=== PATIENT | female | born 1950 | race Caucasian/White ===

== ENCOUNTER 2020-04-16 14:35 | Outpatient (CLI) | payer OTHER, SELFPAY ==
--- NOTE | ~2020-04-16 | MM_ITS ---
EXAMINATION: MM screening jay jay BI w manuel HISTORY: Screening mammogram TECHNIQUE: Craniocaudal and mediolateral oblique 3-D tomosynthesis images were obtained and synthetic 2-D images were generated. CAD analysis was submitted and interpreted. COMPARISON: 03/09/2019 bilateral digital screening mammogram BREAST PARENCHYMAL COMPOSITION: There are scattered areas of fibroglandular density. FINDINGS: Bilateral scattered benign calcifications. Stable mild fibroglandular asymmetry. There is n o evidence of suspicious mass, calcification, or architectural distortion to suggest malignancy in ei ther breast. There has been no suspicious interval change. IMPRESSION: 1. No mammographic evidence of malignancy. 2. Recommend routine screening mammography in one year. BI-RADS Category 2: Benign finding(s). Reviewed, dictated and finalized at location A.
== END 2020-04-16 14:36 | disposition home or self-care (01) ==
PROVIDERS: PCP Internal Medicine; Visit Provider Internal Medicine
DX: Z12.31 Encounter for screening mammogram for malignant neoplasm of breast (principal)
CPT/HCPCS: 77063; 77067

== ENCOUNTER 2020-04-16 15:32 | Outpatient (CLI) | payer OTHER, SELFPAY ==
--- NOTE | ~2020-04-16 | CT_ITS ---
EXAMINATION: CT chest w con DATE: 04/16/2020 17:05 INDICATION: Mediastinal mass TECHNIQUE: Transaxial computed tomographic images of the chest were obtained after the administration of 75 cc of Omnipaque 350 intravenous contrast. The dose-length product (DLP) was 211.17 mGy-cm. Ite rative reconstruction was used. COMPARISON: 10/02/2019, 03/09/2019 FINDINGS: There is severe emphysema. A stable 2.1 x 1.6 cm mass is present in the anterior mediastinu m. The lungs are free of acute opacities. There is no pleural effusion or pneumothorax. No pathologic ally enlarged thoracic lymph nodes are identified. The heart size is normal. Calcified coronary arter y atherosclerosis is noted. There is a moderate-sized sliding hiatal hernia. Calcified mediastinal ly mph nodes are consistent with old granulomatous disease. There is mild thoracic spondylosis. The live r is diffusely low in attenuation when compared with the spleen, consistent with hepatic steatosis. IMPRESSION: 1. 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 2. Severe emphysema. Reviewed, dictated and finalized at location A.
[2020-04-16 16:58] LABS: Estimated Glomerular Filt Rate > 60
== END 2020-04-16 15:33 | disposition home or self-care (01) ==
PROVIDERS: PCP Internal Medicine
DX: J98.59 Other diseases of mediastinum, not elsewhere classified (principal); F17.200 Nicotine dependence, unspecified, uncomplicated; J43.9 Emphysema, unspecified
CPT/HCPCS: 36415; 71260; 77063; 77067; Q9967

== ENCOUNTER 2020-10-08 14:04 | Outpatient (CLI) | payer OTHER, SELFPAY ==
--- NOTE | ~2020-10-08 | US_ITS ---
EXAMINATION: US soft tissue head and neck DATE: 10/08/2020 14:49 INDICATION: Right neck lump. TECHNIQUE: Multiple grayscale and Doppler ultrasound images of the right neck and face were obtained. COMPARISON: None FINDINGS: The right parotid gland is in the patient's area of concern. No abnormal mass. A normal sub cutaneous lymph node is identified. IMPRESSION: 1. Unremarkable right parotid gland. Note that CT is more sensitive than ultrasound for parotiditis. Reviewed, dictated and finalized at location B. IT CORRESPONDENCE CLERK IMPRESSION: 1. Unremarkable right parotid gland. Note that CT is more sensitive than ultras ound for parotiditis.
== END 2020-10-08 14:05 | disposition home or self-care (01) ==
PROVIDERS: PCP Internal Medicine; Visit Provider Internal Medicine
DX: R22.1 Localized swelling, mass and lump, neck (principal)
CPT/HCPCS: 76536

== ENCOUNTER 2020-10-09 14:48 | Outpatient (CLI) | payer OTHER, SELFPAY ==
--- NOTE | ~2020-10-09 | CT_ITS ---
EXAMINATION: CT soft tissue neck w con DATE: 10/09/2020 15:40 INDICATION: Sialoadenitis, unspecified. TECHNIQUE: Computed tomography (CT) of the neck was performed with 75 mL Omnipaque-350 intravenous co ntrast. Automated exposure control and iterative reconstruction technique were employed. The dose-ten gth product was 573.31 mGy-cm. COMPARISON: PET CT 05/01/19, ultrasound 10/08/2020 FINDINGS: The visualized portions of the lung apices demonstrate severe emphysema. There is mild medi astinal lymphadenopathy, likely reactive. There is plaque in the proximal internal carotid arteries w ith less than 50% stenosis relative to normal distal artery lumen diameters. There is a punctate sial olith in left parotid gland. The right parotid gland is unremarkable. There is mild mucosal thickenin g in the ethmoid sinuses. There is a right otomastoid effusion. IMPRESSION: 1. Punctate sialolith in left parotid gland. No parotiditis. 2. Right otomastoid effusion. Reviewed, dictated and finalized at location B. ER
[2020-10-09 15:28] LABS: Estimated Glomerular Filt Rate > 60
== END 2020-10-09 14:49 | disposition home or self-care (01) ==
PROVIDERS: PCP Internal Medicine; Visit Provider Internal Medicine
DX: K11.20 Sialoadenitis, unspecified (principal); H74.8X3 Other specified disorders of middle ear and mastoid, bilateral
CPT/HCPCS: 70491; Q9967

== ENCOUNTER 2020-10-13 12:48 | Outpatient (CLI) | payer OTHER, SELFPAY ==
--- NOTE | ~2020-10-13 | CT_ITS ---
EXAMINATION: CTA chest TECHNIQUE: Computed tomography (CT) of the chest was performed with 100 cc Omnipaque 350 intravenous contrast. Automated exposure control and iterative reconstruction technique were employed. Exam dose: 675.42 mGy-cm total exam DLP. COMPARISON: 04/16/2020 CT chest FINDINGS: Stable anterior mediastinal mass measuring approximately 1.5 cm maximal anteroposterior and 2 cm, without evidence of interval enlargement since 04/16/2020. No other hilar or mediastinal mass lesion or lymphadenopathy. Normal heart size. Aortic and great vessel calcification; no thoracic aortic aneurysm or dissection. No pericardial or pleural effusion. Severe emphysema is again noted. No pulmonary infiltrate or consolidation or pulmonary mass lesion is evident. Mild to moderate sliding hiatal hernia. Status post cholecystectomy. Hepatic steatosis. There is diffuse osteopenia. There is mild degenerative spurring of the thoracic spine. No suspicious osteolytic or osteoblastic lesions are noted. IMPRESSION: Stable anterior mediastinal mass, not significant change since 04/16/2020 Severe osteopenia Hiatal hernia Status post cholecystectomy Hepatic steatosis. Reviewed, dictated and finalized at Location A. Reviewed, dictated and finalized at location B. AGE CLERK IMPRESSION: Stable anterior mediastinal mass, not significant change since 03/29 Severe osteopenia Hiatal hernia Status post cholecystectomy Hepatic steatosis.
== END 2020-10-13 12:49 | disposition home or self-care (01) ==
PROVIDERS: PCP Internal Medicine
DX: J98.59 Other diseases of mediastinum, not elsewhere classified (principal); F17.200 Nicotine dependence, unspecified, uncomplicated; K44.9 Diaphragmatic hernia without obstruction or gangrene; Z90.49 Acquired absence of other specified parts of digestive tract; K76.0 Fatty (change of) liver, not elsewhere classified
CPT/HCPCS: 71275; Q9967

== ENCOUNTER → 2021-10-13 14:57 | Outpatient (CLI) | payer MEDICARE, SELFPAY ==
--- NOTE | ~2021-10-13 | XR_ITS ---
EXAMINATION: XR chest 2V EXAM DATE: 10/13/2021 15:14 INDICATION: J44.9 - Chronic obstructive pulmonary disease, unspecified. Cough for 2.5 weeks. TECHNIQUE: Frontal and lateral projections of the chest obtained and reviewed. Comparison is made to prior examination from 02/14/2018. FINDINGS: The lungs are hyperinflated which can be seen with chronic obstructive pulmonary disease (a clinical diagnosis of functional impairment), but is not diagnostic of it. There is aortic arteriosc lerosis. Narrow cardiac silhouette from hyperinflated lungs. No confluent consolidation, pneumothorax or pleural effusion suspected. There are cholecystectomy clips. There are no osseous abnormalities i dentified. IMPRESSION: Moderate hyperinflation. Reviewed, dictated and finalized at location B. VITY THERAPY SPECIALIST IMPRESSION: Moderate hyperinflation.
== END ==
PROVIDERS: PCP Internal Medicine; Visit Provider Internal Medicine
DX: J44.9 Chronic obstructive pulmonary disease, unspecified (principal); R91.8 Other nonspecific abnormal finding of lung field
CPT/HCPCS: 71046

== ENCOUNTER 2022-01-05 08:53 | Outpatient (CLI) | payer MEDICARE, SELFPAY ==
--- NOTE | ~2022-01-05 | CT_ITS ---
EXAMINATION: CTA chest EXAM DATE: 01/05/2022 09:21 INDICATION: Anterior mediastinal mass. TECHNIQUE: Spiral CT of the chest following intravenous injection of 100 mL Omnipaque 350. Axial, co mikael and sagittal images of the chest were reviewed. Coronal maximum intensity pixel images of ches t reviewed. Maximum intensity projection 3-D reconstructions of the aorta were created by the technkika franco on dedicated workstation. The dose-length product (DLP) for this examination was 405.30 mGy-cm . The exposure was tailored according to patient size (auto mA exposure control), and iterative afsaneh nstruction (ASIR) was used as additional dose reduction technique. Comparison is made to prior examin ation from 04/10/2019. FINDINGS: Anterior mediastinal mass measures 2.1 x 1.1 cm, appears unchanged compared to CT scan from 03/2019, which does favor benign histology. The lungs are clear. Thoracic aorta is normal in caliber and there is no dissection. No central pulmonary emboli. Moderate to severe emphysema. There are no p leural or pericardial effusions. Tracheobronchial tree is patent. There is no mediastinal, hilar or axillary lymphadenopathy. There is no pneumothorax. Heart normal in size. There is lipomatous hypertrophy of the interatrial septum. There is mild to moderate coronary arterial calcification, art erial sclerosis. There is small to sliding gastroesophageal hiatal hernia. There are cholecystectomy clips. There is thoracic spondylosis without osteoblastic or osteolytic lesions identified. IMPRESSION: 1. Stable anterior mediastinal mass which would favor benign histology such as thymoma. 2. Small to moderate hiatal hernia. 3. Moderate to severe emphysema. Reviewed, dictated and finalized at location B. ING PRESS OPERATOR
[2022-01-05 09:15] LABS: Estimated Glomerular Filt Rate > 60
== END 2022-01-05 08:54 | disposition home or self-care (01) ==
LOC: ANHIMG 08:57
PROVIDERS: PCP Internal Medicine; Visit Provider Thoracic Surgery (Cardiothoracic Vascular Surgery)
DX: J98.59 Other diseases of mediastinum, not elsewhere classified (principal); K44.9 Diaphragmatic hernia without obstruction or gangrene; J43.9 Emphysema, unspecified
CPT/HCPCS: 71275; Q9967

== ENCOUNTER 2023-02-13 12:48 | Outpatient (CLI) | payer MEDICARE, SELFPAY ==
--- NOTE | ~2023-02-13 | CT_ITS ---
Clinical Indication: Mediastinal mass CT Scan of the Chest with Contrast: Technique: Contiguous sections were acquired throughout the chest after intravenous administration of 75 cc of Omnipaque 350. Dose reduction technique was used on this scan by utilizing automated exposu re control and iterative reconstruction technique. The dose-length product (DLP) was 278.27 mGy-cm. COMPARISON: 01/05/2022 and 10/13/2020 Findings: Stable anterior mediastinal mass noted (sagittal image 85, axial images 65-72). There is no evidence of any other significant mediastinal, hilar or axillary lymphadenopathy. There is no filling defect i n the pulmonary arterial tree to suggest pulmonary embolus. There is no evidence of aortic dissection or aneurysm. There are atherosclerotic calcifications of the aorta. Coronary artery calcifications a re present. Small hiatal hernia noted. There is no evidence of pleural or pericardial effusion. The lungs are clear. No pulmonary nodules or infiltrates are noted. Moderate to severe emphysema pres ent. Images through the upper abdomen reveal no abnormalities. Impression: Stable small anterior mediastinal mass. Stability over this time interval is most consistent with a b enign lesion. Moderate to severe emphysema. Small hiatal hernia. Reviewed, dictated and finalized at location . Impression: Stable small anterior mediastinal mass. Stability over this time interval is mo st consistent with a benign lesion. Moderate to severe emphysema. Small hiatal hernia.
[2023-02-13 13:39] LABS: Estimated Glomerular Filt Rate > 60
== END 2023-02-13 12:49 | disposition home or self-care (01) ==
PROVIDERS: PCP Internal Medicine; Visit Provider Thoracic Surgery (Cardiothoracic Vascular Surgery)
DX: J98.59 Other diseases of mediastinum, not elsewhere classified (principal); K44.9 Diaphragmatic hernia without obstruction or gangrene; J43.9 Emphysema, unspecified
CPT/HCPCS: 71260; Q9967

== ENCOUNTER 2025-05-15 13:03 | Outpatient (CLI) | payer MEDICARE, SELFPAY ==
--- NOTE | ~2025-05-15 | US_ITS ---
EXAM: RENAL ULTRASOUND HISTORY: R80.9 - Proteinuria, unspecified COMPARISON: None FINDINGS: RIGHT KIDNEY: 11.7 x 5.6 x 4.6 cm. The parenchyma of the right kidney is increased in echogenicity. No hydronephrosis or renal calculi. LEFT KIDNEY: 11.1 x 5.6 x 5.2 cm No hydronephrosis or renal calculi. The parenchyma of the left kidney is increased in echogenicity. BLADDER: The bladder is only minimally distended. Bilateral ureteral jets are identified. IMPRESSION: No hydronephrosis or renal calculi. Findings suggesting medical renal disease. Reviewed, dictated and finalized at location A.
--- NOTE | ~2025-05-15 | CT_ITS ---
CT Scan of the Chest without Contrast: Clinical Indication: Lung cancer screening, nicotine dependence Technique: Contiguous sections were acquired throughout the chest without intravenous contrast. Dose reduction technique was used on this scan by utilizing automated exposure control and iterative recon struction technique. The dose-length product (DLP) was 72.59 mGy-cm. COMPARISON: 02/13/2023 Findings: Stable small anterior mediastinal mass. There are extensive atherosclerotic calcifications of aorta a nd coronary arteries. There is no evidence of pleural or pericardial effusion. Severe emphysema present. No pulmonary nodule identified. Images through the upper abdomen reveal no abnormalities. Impression: Lung RADS 1-S: Negative. [address] advised. Severe emphysema. Stable small anterior mediastinal mass, with circumscribed, homogeneous appearance. Reviewed, dictated and finalized at [facility]. Impression: Lung RADS 1-S: Negative. [address] advised. Severe emphysema. Stable small anterior mediastinal mass, with circumscribed, homogeneous appeara nce.
--- OUTSIDE RECORDS SUMMARY | 2025-05-15 14:36 | XMS_ITS | CONTINUITY OF CARE DOCUMENT ---
Author Name flynn pruett Address Unknown Organization [facility] Address [address] [place] [address] Phone [phone] Care Team Providers Care Subassembly Supervisor Name Role Phone Mahad Mccallum MD Unavailable [phone] Reji Sethi MD Unavailable JEREMIAH BARLOW MD Unavailable [phone] PROBLEMS Condition Status Date Provider Notes PVD - angioplasty left SFA 05/19 active Ayla Stearns Diabetes mellitus, type 2 active Mahad Buenrostro i, MD Hypertension active Mahad Mccallum MD Hypothyroidism active Mahad Mccallum MD Hypercholesterolemia active Mahad Mccallum MD Tobacco abuse active Mahad Mccallum MD Leg pain, left active Spencer Martines Carotid artery stenosis, <50% ICA b/l active 8 Mahad Mccallum MD Venous insufficiency, bilateral active Mahad Mccallum MD 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 Mahad Mccallum MD Chest mass active Mahad Mccallum MD ENCOUNTERS Date Type Provider Location Encounter Diag nosis - In-person encounter Office Visit Mahad Mccallum MD [facility] - In-person encounter Office Visit Mahad Mccallum MD [facility] - In-person encounter Office Visit Mahad Mccallum MD [facility] - In-person encounter Office Visit Mahad Mccallum MD [facility] - In-person encounter Office Visit Mahad Mccallum MD [facility] - In-person encounter Office Visit Mahad Mccallum MD [facility] PVD - angioplasty left SFA 05/19 - In-person encounter Office Visit Mahad Mccallum MD [facility] - In-person encounter Office Visit Mahad Mccallum MD [facility] - In-person encounter Office Visit Mahad Mccallum MD [facility] PVD - angioplasty left SFA 05/19Leg pain, leftChest mass - In-person encounter Office Visit Mahad Mccallum MD [facility] 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 09/2017 - In-person encounter Office Visit Mahad Mccallum MD [facility] Carotid artery stenosis, <50% ICA b/lVenous insufficiency, bilateral - In-person encounter Office Visit Mahad Mccallum MD [facility] PVD - angioplasty left SFA 05/19Diabetes mellitus, type 2HypertensionHypothy roidismHypercholeste rolemiaTobacco abuseLeg pain, leftCarotid artery stenosis, <50% ICA b/l VITAL SIGNS Date Observation Value Provider Body Mass Index (Ratio) 24.87 kg/m2 Tana Rivers blood pressure, cuff size regular Ja rr blood pressure, diastolic 74 mm[Hg] Julio César rret blood pressure, systolic 155 mm[Hg] Chuck ret pulse rate 77 /min Grupo y respiratory rate E&M 14 /min Grupo oxygen saturation, oximetry 98 % Grupo weight E&M 136 [lb_av] Grupo [place] height E&M 62 [in_i] Grupo y Body Mass Index (Ratio) 25.60 kg/m2 Mellisa Dsouza blood pressure, cuff size regular Ja rret blood pressure, diastolic 80 mm[Hg] Ja rret blood pressure, systolic 170 mm[Hg] Jar ret pulse rate 74 /min Grupo respiratory rate E&M 12 /min Grupo oxygen saturation, oximetry 96 % Grupo weight E&M 140 [lb_av] Grupo y height E&M 62 [in_i] Grupo y Body Mass Index (Ratio) 25.79 kg/m2 Mahad Mccallum MD weight E&M 141 [lb_av] Grupo height E&M 62 [in_i] Grupo y blood pressure, cuff size regular Ja rret blood pressure, diastolic 76 mm[Hg] Ja rret blood pressure, systolic 149 mm[Hg] Jar ret oxygen saturation, oximetry 97 % respiratory rate E&M 12 /min pulse rate 86 /min Grupo Body Mass Index (Ratio) 26.15 kg/m2 Rasheed wade Ahmedzai blood pressure, diastolic 90 mm[Hg] Li nkLogic blood pressure, systolic 165 mm[Hg] Chantel kLogic blood pressure, diastolic 90 mm[Hg] Mi fabio [place] blood pressure, systolic 165 mm[Hg] Jewel helcassius [place] oxygen saturation, oximetry 95 % Rosanna [place] pulse rate 78 /min Rosanna April gates respiratory rate E&M 16 /min Tiesha Palacios blood pressure, cuff size regular Elida mccarthy Philip weight E&M 143 [lb_av] Rosanna gates height E&M 62 [in_i] Rosanna gates Body Mass Index (Ratio) 27.10 kg/m2 Antonio da Ventimiglia MANAGER ANALYTICAL blood pressure, diastolic 71 mm[Hg] lorenzo York blood pressure, systolic 143 mm[Hg] She sonali York blood pressure, cuff size regular Karla York pulse rate 85 /min Khushboo York oxygen saturation, oximetry 95 % Khushboo York respiratory rate E&M 18 /min Khushboo York weight E&M 148.2 [lb_av] Khushboo York height E&M 62 [in_i] Khushboo York Body Mass Index (Ratio) 27.43 kg/m2 Ayla wallace Jinny blood pressure, cuff size large Elida mccarthy Philip blood pressure, diastolic 80 mm[Hg] Elida mccarthy Philip blood pressure, systolic 150 mm[Hg] [facility] rayshawn Palacios oxygen saturation, oximetry 93 % Rosanna Palacios respiratory rate E&M 16 /min Tiesha Palacios pulse rate 88 /min Rosanna gates weight E&M 150 [lb_av] Rosanna gates height E&M 62 [in_i] Rosanna gates Body Mass Index (Ratio) 29.26 kg/m2 Ayla millerpatricio Stearns blood pressure, resting Yes Derick ty Diablo blood pressure, cuff size regular Kr isty Aaron blood pressure, diastolic 90 mm[Hg] Malik De La Cruzby blood pressure, systolic 150 mm[Hg] Nasra De La Cruzby oxygen saturation, oximetry 95 % Joanne De La Cruzby respiratory rate E&M 18 /min Joanne De La Cruzby pulse rate 80 /min Joanne De La Cruzby weight E&M 160 [lb_av] Joanne Aaron height E&M 62 [in_i] Joanne De La Cruzby Body Mass Index (Ratio) 29.44 kg/m2 Ayla wallace Jacobsmeyer blood pressure, diastolic 70 mm[Hg] Li nkLogic blood pressure, systolic 130 mm[Hg] Chantel kLogic blood pressure, diastolic 70 mm[Hg] Sh erkeitkailey Villegas blood pressure, systolic 130 mm[Hg] She [facility] centerkailey Villegas pulse rate 79 /min Obdulia farrisd oxygen saturation, oximetry 97 % Obdulia Mckeonford blood pressure, resting Yes Amadou white Villegas respiratory rate E&M 18 /min Samuel dennis Villegas weight E&M 161 [lb_av] Obdulia Mckeon moore height E&M 62 [in_i] Obdulia Mckeon moore Body Mass Index (Ratio) 28.53 kg/m2 Bahman Martines blood pressure, diastolic, left arm 80 mm [Hg] Claudia Block blood pressure, systolic, left arm 144 mm [Hg] Claudia Block blood pressure, diastolic, right arm 80 m m[Hg] Claudia Block blood pressure, systolic, right arm 148 m m[Hg] Claudia Block blood pressure, diastolic 80 mm[Hg] Br ittany Block blood pressure, systolic 148 mm[Hg] Leti ttany Block respiratory rate E&M 16 /min Bambi Awilda pulse rate 89 /min Claudia Block oxygen saturation, oximetry 98 % Claudia Block weight E&M 156 [lb_av] Claudia Block height E&M 62 [in_i] [facility] Body Mass Index (Ratio) 29.44 kg/m2 Bahman cormierer [facility] blood pressure, cuff size regular Ke nitini [facility] blood pressure, diastolic 85 mm[Hg] niels [facility] blood pressure, systolic 157 mm[Hg] Vickey mono [facility] oxygen saturation, oximetry 98 % Debora Almodovarmackenziemikelolivia respiratory rate E&M 18 /min Deobra haque pulse rate 97 /min Debora Maicoladriano [facility] weight E&M 161 [lb_av] Debora Escalante [facility] height E&M 62 [in_i] Debora Escalante [facility] Body Mass Index (Ratio) 29.26 kg/m2 [facility] blood [facility], diastolic, left arm 80 mm [Hg] Langston Barrios blood pressure, systolic, left arm 150 mm [Hg] Lorne Barrios blood pressure, diastolic, right arm 80 m m[Hg] Langston Barrios blood pressure, systolic, right arm 160 m m[Hg] Langston Brarios blood pressure, diastolic 80 mm[Hg] Ki [facility] blood pressure, systolic 150 mm[Hg] Gelacio gordillo Seth oxygen saturation, oximetry 97 % Lorne Barrios respiratory rate E&M 16 /min Lorne Barrios pulse rate 94 /min Langston Barrios weight E&M 160 [lb_av] Lorne Barrios height E&M 62 [in_i] [facility] Body Mass Index (Ratio) 29.08 kg/m2 Bahman Martines blood pressure, resting Yes Mustapha lai Seth blood pressure, diastolic, left arm 80 mm [Hg] [facility] blood pressure, systolic, left arm 150 mm [Hg] [facility] blood pressure, diastolic, right arm 80 m m[Hg] [facility] blood pressure, systolic, right arm 150 m m[Hg] [facility] blood pressure, diastolic 80 mm[Hg] [facility], systolic 150 mm[Hg] Gelacio gordillo Seth oxygen saturation, oximetry 97 % [facility] respiratory rate E&M 16 /min [facility] pulse rate 104 /min [facility] weight E&M 159 [lb_av] [facility] height E&M 62 [in_i] [facility] ALLERGIES Allergy Name Onset Date Reaction Criticality Status PENICILLIN Itching Itching Low Criticality acti ve CRESTOR muscle aches Low Criticality active RESULTS Date Observation Value Provider Reference Range Interpretation Location prothrombin time (patient) 9.8 s [facility] 9.1-12.0 international normalized ratio (INR) 0.9 [facility] 0.9-1.2 calcium, serum 10.0 mg/dL [facility] 8.7-10.3 carbon dioxide, venous blood 22 mmol/L [facility] 20-29 chloride, serum 101 mmol/L [facility] 96-106 potassium, serum 4.9 mmol/L [facility] 3.5-5.2 sodium, serum 139 mmol/L [facility] [phone]/05/ 21 urea nitrogen/creatin ine ratio, serum 18 [facility] 12-28 creatinine, serum 0.76 mg/dL [facility] 0.57-1.00 urea nitrogen, blood 14 mg/dL [facility] 8-27 blood glucose, random 131 mg/dL [facility] 65-99 High basophil count, absolute 0.1 x10E3/uL [facility] 0.0-0.2 Eosinophil Absolute Count 0.3 X10E3/UL [facility] 0.0-0.4 monocyte count, blood, automated 0.8 X10E3/UL [facility] 0.1-0.9 lymphocyte count, blood, automated 2.5 X10E3/UL [facility] 0.7-3.1 Absolute Neutrophils 5.9 X10E3/UL [facility] 1.4-7.0 basophils as percent of blood leukocytes 1 % [facility] Not Estab. eosinophils as percent of blood leukocytes 3 % [facility] Not Estab. monocytes as percent of blood leukocytes 8 % [facility] Not Estab. lymphocytes as percent of blood leukocytes 27 % [facility] Not Estab. neutrophils as percent of blood leukocytes 61 % [facility] Not Estab. platelet count 367 X10E3/UL [facility] [phone]/05/ 21 red blood cell distribution width 13.5 % [facility] 11.7-15.4 mean corpuscular hemoglobin concentration, RBC 34.2 G/DL [facility] 31.5-35.7 mean corpuscular hemoglobin, RBC 32.1 pg [facility] 26.6-33.0 mean corpuscular volume, RBC 94 fL [facility] 79-97 hematocrit, blood 44.2 % [facility] 34.0-46.6 hemoglobin, blood 15.1 g/dL [facility] 11.1-15.9 erythrocyte (RBC) count 4.71 X10E6/UL [facility] 3.77-5.28 leukocyte count, blood 9.6 X10E3/UL [facility] 3.4-10.8 prothrombin time (patient) 9.8 s [facility] 9.1-12.0 international normalized ratio (INR) 0.9 [facility] 0.9-1.2 basophil count, absolute 0.1 x10E3/uL [facility] 0.0-0.2 Eosinophil Absolute Count 0.3 X10E3/UL [facility] 0.0-0.4 monocyte count, blood, automated 0.6 X10E3/UL [facility] 0.1-0.9 lymphocyte count, blood, automated 2.4 X10E3/UL [facility] 0.7-3.1 Absolute Neutrophils 5.5 X10E3/UL [facility] 1.4-7.0 basophils as percent of blood leukocytes 1 % [facility] Not Estab. eosinophils as percent of blood leukocytes 3 % [facility] Not Estab. monocytes as percent of blood leukocytes 7 % [facility] Not Estab. lymphocytes as percent of blood leukocytes 27 % [facility] Not Estab. neutrophils as percent of blood leukocytes 62 % [facility] Not Estab. platelet count 370 X10E3/UL [facility] [phone]/11/ 06 red blood cell distribution width 13.7 % [facility] 11.7-15.4 mean corpuscular hemoglobin concentration, RBC 34.7 G/DL [facility] 31.5-35.7 mean corpuscular hemoglobin, RBC 32.4 pg [facility] 26.6-33.0 mean corpuscular volume, RBC 93 fL [facility] 79-97 hematocrit, blood 41.2 % [facility] 34.0-46.6 hemoglobin, blood 14.3 g/dL [facility] 11.1-15.9 erythrocyte (RBC) count 4.42 X10E6/UL [facility] 3.77-5.28 leukocyte count, blood 8.8 X10E3/UL [facility] 3.4-10.8 lipoprotein, beta, serum, point, quantitative, calculated 156 mg/dL [facility] 0-99 High HDL cholesterol, serum 43 mg/dL [facility] >39 triglyceride, serum, random 175 mg/dL [facility] 0-149 High cholesterol, serum 231 mg/dL [facility] 100-199 High calcium, serum 9.3 mg/dL [facility] 8.7-10.3 carbon dioxide, venous blood 23 mmol/L [facility] 20-29 chloride, serum 101 mmol/L [facility] 96-106 potassium, serum 5.7 mmol/L [facility] 3.5-5.2 High sodium, serum 137 mmol/L [facility] [phone]/11/ 06 urea nitrogen/creatin ine ratio, serum 18 [facility] 12-28 eGFR if 95 mL/min/{1.73_ m2} [facility] >59 eGFR if not 83 mL/min/{1.73_ m2} [facility] >59 creatinine, serum 0.73 mg/dL [facility] 0.57-1.00 urea nitrogen, blood 13 mg/dL [facility] 8-27 blood glucose, random 118 mg/dL [facility] 65-99 High LDL cholesterol, serum 129 mg/dL [facility] microalbumin/cre atinine ratio, urine 26.6 MG/G CREAT [facility]ic 0.0-30.0 microalbumin, random, urine 1.62 mg/dL [facility] Units converted. See lab report for original value. creatinine, random, urine 60.8 mg/dL [facility] Not Estab. microalbumin, random, urine 0.4 mg/dL [facility] Units converted. See lab report for original value. creatinine, urine 58.6 MG/DL [facility] Not Estab. Total LDL-cholesterol direct 129 mg/dL [facility] 0-100 High albumin/creatini ne ratio, urine 35 MG/G CREATININE Link[facility]ic 0-30 High creatinine, random, urine 107.88 (?) [facility] microalbumin, urine 38 [facility] 0-30 High international normalized ratio (INR) 0.9 [facility] 0.9-1.1 prothrombin time (patient) 9.4 s [facility] 9.0-11.5 platelet count 392 THOUSAND/UL [facility] [phone]/11/ 08 Absolute Basophils 0.0 CELLS/UL [facility] 0.0-0.2 Absolute Monocytes 0.7 CELLS/UL [facility] 0.2-1.0 Absolute Lymphocytes 3.12 CELLS/UL [facility] 0.85-3.90 Absolute Neutrophils 7.2 CELLS/UL [facility] 1.5-7.8 mean corpuscular volume, RBC 99 fL [facility] 75-100 mean corpuscular hemoglobin concentration, RBC 33 G/DL [facility] 31-38 mean corpuscular hemoglobin, RBC 33 pg [facility] 25-35 hematocrit, blood 45 % [facility] 35-55 hemoglobin, blood 14.7 g/dL [facility] 11.5-16.5 erythrocyte count, whole blood 4.5 MILLION/UL [facility] 3.5-5.5 very low density lipoproteins 101.0 mg/dL [facility] 5.0-40.0 High LDL/HDL (low-density lipoprotein/high -density lipoprotein) ratio 2 mg/dL [facility] 0-5 lipoprotein, beta, serum, point, quantitative, calculated 80 mg/dL [facility] 0-100 HDL cholesterol, serum 39 mg/dL [facility] Low cholesterol, serum 220 mg/dL [facility] 0-200 High triglyceride, serum, fasting 505 mg/dL [facility] 0-150 High Estimated Glomerular Filtration Rate (calc) 114 (?) [facility] >59 chloride, serum 93 mmol/L [facility] 98-107 Low potassium, serum 4.9 mmol/L [facility] 3.5-5.1 sodium, serum 136 mmol/L [phone]/11/ 08 creatinine, serum 0.6 mg/dL [facility] 0.5-0.9 carbon dioxide, venous blood 26 mmol/L [facility] calcium, serum 10.3 mg/dL [facility] 8.6-10.2 High urea nitrogen, blood 16 mg/dL [facility] 8-23 blood glucose, random 229 mg/dL [facility] 74-99 High albumin/creatini ne ratio, urine 12 MG/G CREATININE [facility]ic 0-30 creatinine, random, urine 117.82 (?) [facility]in, urine 14 [facility] hemoglobin A1C, blood, as % of total hemoglobin 6.7 % [facility] triglyceride, serum, fasting 283 mg/dL [facility] HDL cholesterol, serum 30 mg/dL [facility] LDL cholesterol, serum 148 mg/dL [facility] cholesterol, serum 235 mg/dL [facility] platelet count 368 10*3/uL [facility] red blood cell distribution width 13.3 % [facility] mean corpuscular hemoglobin concentration, RBC 33.0 g/dL [facility] mean corpuscular hemoglobin, RBC 32.5 pg [facility] mean corpuscular volume, RBC 98.4 fL [facility] hematocrit, blood 43.3 % [facility] hemoglobin, blood 14.3 g/dL [facility] erythrocyte (RBC) count 4.40 10*6/mm3 [facility] leukocyte count, blood 13.57 10*3/mm3 [facility] calcium, serum 9.2 mg/dL [facility] blood glucose, random 84 mg/dL [facility] creatinine, serum 0.62 mg/dL [facility] urea nitrogen, blood 13 mg/dL [facility] carbon dioxide, serum, total 23 mmol/L [facility] chloride, serum 104 mmol/L [facility] potassium, serum 4.0 mmol/L [facility] sodium, serum 139 mmol/L [facility] HISTORY OF MEDICATION USE Medication Status Instructions Dates Provider Indications Com ments Crestor 20 mg tablet active Take 1 tablet by mouth once a day Debora Rm Solostdimas U-100 Insulin 100 unit/mL (3 mL) insulin pen active Bridgett Ventimiglia MANAGER ANALYTICAL Xarelto 2.5 mg tablet active Take 1 tablet by mouth twice a day Prescribed to reduce the risk of major cardiovascular events(CV , DC and stroke) in patients with chronic CAD or PAD Carli Hope RN Farxiga 10 mg tablet active Take 1 tablet by mouth once a day Bridgettanne Dixonmiglia MANAGER ANALYTICAL clopidogrel 75 mg tablet active Take 1 tablet by mouth once a day TAKE 1 TABLET BY MOUTH DAILY Mahad Mccallum MD OneTouch Verio Reflect Meter active Joanne Walker Anoro Ellipta 62.5-25 mcg/actuation blister with device active Joanne Walker OneTouch Verio test strips strip active Joanne Walker alendronate 70 mg tablet active Joanne Walker nicotine 14 mg/24 hr patch 24 hour completed APPLY 1 PATCH ONTO THE SKIN ONCE DAILY - Bridgett Ventimiglia MANAGER ANALYTICAL levothyroxine 75 mcg tablet active Joanne Walker Crestor 20 mg tablet completed 1 tablet once a day - Debora Schilling CHANTIX CONTINUING MONTH LUIS 1 MG ORAL TABLET completed One pack. Take as directed - Mahad Mccallum MD CHANTIX STARTING MONTH LUIS 0.5 MG X 11 & 1 MG X 42 ORAL TABLET completed One Pack. Take as directed. - Mahad Mccallum MD ZETIA 10 MG ORAL TABLET completed Take one tablet by mouth daily. - Mahad Mccallum MD LIPITOR 40 MG ORAL TABLET completed ONE TABLET DAILY - Debora Schilling ASPIRIN ADULT LOW DOSE 81 MG ORAL TABLET DELAYED RELEASE completed One Tab By Mouth Daily - Spencer Martines gabapentin 300 mg capsule active three times a day Joanne Walker Fortamet 500 mg tablet extended release 24hr active twice a day Joanne Walker Amaryl 4 mg tablet completed twice a day - Joanne Walker [place] Thyroid 60 mg tablet completed once a day - [facility] ADALAT CC 30 MG ORAL TABLET EXTENDED RELEASE 24 HOUR active once a day Joanne Walker CLOPIDOGREL BISULFATE 75 MG ORAL TABLET completed once daily - Obdulia Villegas SOCIAL HISTORY Date Observation Value Provider personal history of marijuana use no Bridgett Destinymiglia [facility] drug use no Bridgett Ventimig constantin [facility] alcohol use no Bridgett Ventimig constantin [facility] smoking, year quit 2021 Bridgett Fernando ntimiglia [facility] smoking history, tot al pack/day 1 Bridgett Ventimiglia [facility] cigarette use yes Bridgett Destinymi glia [facility] smoking status Former smoker Bridgett leonga [facility] drug use no Mahad Mccallum MD alcohol use no Mahad Mccallum MD smoking, year quit 2021 Mahad huffman MD smoking history, tot al pack/day 1 Mahad Mccallum MD cigarette use yes Mahad Mccallum MD smoking status Former smoker Mahad Mccallum MD social history reviewed E&M revi ewed - no changes required Mahad Mccallum MD social history E&M S moking History: Kelby oh is a former smoker. Сергей Sauer social history reviewed E&M revi ewed - no changes required Сергей Sauer smoking, year quit 2021 Rosanna Palacios smoking history, tot al pack/day 1 Rosanna Palacios cigarette use yes Rosanna Leblanc bayron smoking status Former smoker Rosanna arrington drug use no Bridgett Ventimig constantin [facility] alcohol use no Bridgett Ventimig constantin [facility] smoking, year quit 2021 Bridgett Ve ntimiglia [facility] cigarette use yes Bridgett Ventimi glia [facility] smoking status Former smoker Bridgett Venti miglia [facility] smoking/tobacco cess ation, patient education and counseling yes Rosanna Palacios smoking history, tot al pack/day 1 Rosanna Palacios cigarette use yes Rosanna Leblanc bayron smoking status Current every day smoker Sherry Palacios social history reviewed E&M revi ewed - no changes required Claudia Stearns social history E&M S moking History: Kelby oh currently smokes every day. Kelby oh has been counseled to quit. Mahad Mccallum MD social history reviewed E&M revi ewed - no changes required Mahad Mccallum MD smoking/tobacco cess ation, patient education and counseling yes Joanne Walker smoking history, tot al pack/day 1 Joanne Walker cigarette use yes Joanne Walker smoking status Current every day smoker Armin Walker social history E&M S moking History: P atient currently smokes every day. P atient has been counseled to quit. Mahad Mccallum MD social history reviewed E&M revi ewed - no changes required Mahad Mccallum MD smoking/tobacco cess ation, patient education and counseling yes Obdulia Villegas smoking history, tot al pack/day 1 Obdulia Villegas cigarette use yes Obdulia douglass smoking status Current every day smoker S myranda Villegas social history reviewed E&M revi ewed - no changes required Spencer Martines smoking/tobacco cess ation, patient education and counseling yes Claudia Block smoking history, tot al pack/day 1 Claudia Awilda cigarette use yes [facility] smoking status Current every day smoker B reymundo Kaiser social history reviewed E&M revi ewed - no changes required Spencer Martines smoking status Current every day smoker A genna [facility] smoking/tobacco cess ation, patient education and counseling yes Debora Schilling smoking history, tot al pack/day 1 Debora Schilling cigarette use yes Debora baker smoking/tobacco cess ation, patient education and counseling yes Mahad Mccallum MD smoking history, tot al pack/day 1 Mahad Mccallum MD cigarette use yes Mahad Mccallum MD smoking status Current every day smoker G elkin Mccallum MD social history reviewed E&M revi ewed - no changes required Mahad Mccallum MD social history reviewed E&M revi ewed - no changes required Mahad Mccallum MD social history E&M Smoking Histo ry: P atient currently smokes every day. P atient has been counseled to quit. Mahad Mccallum MD smoking/tobacco cess ation, patient education and counseling yes Mahad Mccallum MD smoking history, tot al pack/day 1 Lorne Sophie cigarette use yes Lorne Barrios smoking status Current every day smoker Armin Barrios FAMILY HISTORY Family Member Condition Father Family History of Co ngestive Heart Failure: Father Family History of Di abetes: Mother Family History of Di abetes: INSURANCE PROVIDERS Payer name Policy type / Coverage type [place] red green party ID AARP [facility] ADVANTAGE PLAN 2 (HMO-POS) Medicare [id number] ADVANCE DIRECTIVES Name Date DISCUSSED - NO DECISION MADE TREATMENT PLAN Date Name Performer [id number],S, H er updated medication list for this problem includes: Farxiga 10 Mg Tablet (Dapagliflozin) ..... Take 1 tablet by mouth once a day Fortamet 500 Mg Tablet Extended Release 24hr (Metformin) ..... Twice a day Mahad Mccallum MD [id number],S, W ill obtain f/u echo. Mahad Mccallum MD [id number],S, S /P successful stenting of the left iliac vein. Mahad Mccallum MD [id number],S, P t noticed numbness and bluish discoloration of the second and third toes of the left foot. 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 Will schedule AIF with possible intervention. CT of the chest showed mass, which is according to the pt followed by Steph. Also coronary calcification were noted on CT. Will obtain Echo and Regadenoson stress test. Mahad Mccallum MD [id number],S, L DL is 120 H er updated medication list for this problem includes: Crestor 20 Mg Tablet (Rosuvastatin) ..... 1 tablet once a day Mahad Mccallum MD [id number],S, H er updated medication list for this problem includes: Levothyroxine 75 Mcg Tablet (Levothyroxine) Mahad Mccallum MD [id number],S, B P today: 149/76 P rior BP: 165/90 (04/13/2023) Labs Reviewed: C reat: 0.76 (04/17/2022) C hol: 231 (10/03/2021) HDL: 43 (10/03/2021) Mahad Mccallum MD [id number],S, H er updated medication list for this problem includes: Farxiga 10 Mg Tablet (Dapagliflozin) ..... Take 1 tablet by mouth once a day Fortamet 500 Mg Tablet Extended Release 24hr (Metformin) ..... Twice a day Сергей Sauer [id number],S, H er updated medication list for this problem includes: Crestor 20 Mg Tablet (Rosuvastatin) ..... 1 tablet once a day Сергей Sauer [id number],C,P t noticed numbness and bluish discoloration of the second and third toes of the left foot. 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 Will schedule AIF with possible intervention. CT of the chest showed mass, which is according to the pt followed by Steph. Also coronary calcification were noted on CT. Will obtain Echo and Regadenoson stress test. Сергей Sauer [id number],C, B P today: 165/90 P rior BP: 143/71 (01/31/2023) Labs Reviewed: C reat: 0.76 (04/17/2022) C hol: 231 (10/03/2021) HDL: 43 (10/03/2021) Сергей Sauer [id number],C,L ast LDL 156 not at goal. patient reports only takes crestor every other day as causes muscle weakness and pain when taken daily. We will update lipids. If LDL not at goal consider additional therapy H er updated medication list for this problem includes: Crestor 20 Mg Tablet (Rosuvastatin) ..... 1 tablet once a day Bridgett Anthony [facility] [id number],C,Q uit one year ago. Was a ppd smoker >30 years. Will plan low dose screening lung CT O rders: 9213 MOD 30-39min (CPT-10268) C ounseling LDCT (CPT-G0296) L ow Dose Lung CT (CPT-G0297) A rterial Duplex Bi-Lower EX (CPT-22450) Bridgett Anthony [facility] [id number],C,o n metformin and farxiga per PCP. will get most recent labs sent H er updated medication list for this problem includes: Farxiga 10 Mg Tablet (Dapagliflozin) ..... Take 1 tablet by mouth once a day Fortamet 500 Mg Tablet Extended Release 24hr (Metformin) ..... Twice a day Orders: 9213 MOD 30-39min (CPT-38743) C ounseling LDCT (CPT-G0296) L ow Dose Lung CT (CPT-G0297) A rterial Duplex Bi-Lower EX (CPT-26271) Bridgettanne Anthony [facility] [id number],C,B lood pressure 143/71. Near average at home per RPM. Will continue current meds and monitoring O rders: 9213 MOD 30-39min (CPT-08928) C ounseling LDCT (CPT-G0296) L ow Dose Lung CT (CPT-G0297) A rterial Duplex Bi-Lower EX (CPT-51370) Bridgett Anthony [facility] [id number],C,r emains on asa, plavix and statin. Denies pain. She does have some discoloration of the toes when feet dangle and cramping. We will do f/u duplex to r/o any suggestion of recurrent disease. O rders: 9213 MOD 30-39min (CPT-58534) C ounseling LDCT (CPT-G0296) L ow Dose Lung CT (CPT-G0297) A rterial Duplex Bi-Lower EX (CPT-76448) Bridgett Anthony [facility] [id number],C,S /P intervention of the left SFA, feeling much better. No leg pain. Will continue Plavix. Claudia Stearns [id number],C,S /P intervention of the left SFA, feeling much better. No leg pain. Will continue Plavix. Claudia Stearns [id number],S, T he Patient was reencouraged to stop smoking. Mahad Mccallum MD [id number],C, H er updated medication list for this problem includes: Crestor 20 Mg Tablet (Rosuvastatin) ..... 1 tablet once a day Mahad Mccallum MD [id number],C, H er updated medication list for this problem includes: [place] Thyroid 60 Mg Tablet (Thyroid (pork)) ..... Once a day Levothyroxine 75 Mcg Tablet (Levothyroxine) Mahad Mccallum MD [id number],C, H er updated medication list for this problem includes: Fortamet 500 Mg Tablet Extended Release 24hr (Metformin) ..... Twice a day Mahad Mccallum MD [id number],C, B P today: 150/80 P rior BP: 150/90 (07/13/2021) Labs Reviewed: C reat: 0.76 (04/17/2022) C hol: 231 (10/03/2021) HDL: 43 (10/03/2021) Mahad Mccallum MD [id number],C, H er updated medication list for this problem includes: [place] Thyroid 60 Mg Tablet (Thyroid (pork)) ..... Once a day Levothyroxine 75 Mcg Tablet (Levothyroxine) Claudia Stearns [id number],C,T he Patient was reencouraged to stop smoking. Claudia Stearns [id number],C,O n statin. Her updated medication list for this problem includes: Crestor 20 Mg Tablet (Rosuvastatin) ..... 1 tablet once a day Claudia Stearns [id number],C, T he following medications were removed from the medication list: Amaryl 4 Mg Tablet (Glimepiride) ..... Twice a day Her updated medication list for this problem includes: Fortamet 500 Mg Tablet Extended Release 24hr (Metformin) ..... Twice a day Claudia Stearns [id number],C, B P today: 150/90 P rior BP: 130/70 (06/03/2021) Labs Reviewed: C reat: 0.6 (10/05/2017) C hol: 220 (10/05/2017) HDL: 39 (10/05/2017) T (10/05/2017) Claudia Stearns [id number],C,A BI showed severe stenosis of the left distal SFA/popliteal with possible occlusion. Will schedule AIF/intervention. Venous duplex was normal. Echo showed normal EF. Claudia Stearns [id number],C,A BI showed severe stenosis of the left distal SFA/popliteal with possible occlusion. Will schedule AIF/intervention. Venous duplex was normal. Echo showed normal EF. Claudia Stearns [id number],C, H er updated medication list for this problem includes: [place] Thyroid 60 Mg Oral Tablet (Thyroid) ..... Once daily Claudia Stearns [id number],C, She is now treated with insulin for diabetes. H er updated medication list for this problem includes: Fortamet 500 Mg Oral Tablet Extended Release 24 Hour (Metformin hcl) ..... Twice daily Amaryl 4 Mg Oral Tablet (Glimepiride) ..... Twice daily Claudia Stearns [id number],C, B P today: 130/70 P rior BP: 148/80 (04/16/2019) Labs Reviewed: C reat: 0.6 (10/05/2017) C hol: 220 (10/05/2017) HDL: 39 (10/05/2017) T (10/05/2017) Her updated medication list for this problem includes: Adalat Cc 30 Mg Oral Tablet Extended Release 24 Hour (Nifedipine) ..... Once daily Claudia Rochanoris [id number],C,W ill obtain f/u echo. O n statin H er updated medication list for this problem includes: Crestor 20 Mg Oral Tablet (Rosuvastatin calcium) ..... One tablet daily Claudia Rochanoris [id number],C,Will obtain f /u echo. Claudiamadison Rochamslaryr [id number],C,T he pt complains of pain, numbness, and bluish discoloration of the toes in the left foot. Will obtain arterial and venous duplex. Claudiamadison Rochanoris Cardiology:patient r epos LDL is 66 on labs last week s he is reporting cramping in legs and arms, will hold crestor for one week if resolves will discuss non statin options d iscussed prevail patient declined at this time. [facility] Cardiology:BP 155/74 H as home RPM does not appear to be using regularly H ave encouraged daily compliance I f elevated consider ARB in setting of DM [facility] Cardiology:remains o n replacement therapy H er updated medication list for this problem includes: Levothyroxine 75 Mcg Tablet (Levothyroxine) [facility] Cardiology:continued cessation e ncouraged [facility] Cardiology: c ontinues on plavix and xarelto [facility] Cardiology:remains o n insulin therapy H er updated medication list for this problem includes: Lantus Solostar U-100 Insulin 100 Unit/ml (3 Ml) Insulin Pen (Insulin glargine) Farxiga 10 Mg Tablet (Dapagliflozin) ..... Take 1 tablet by mouth once a day Fortamet 500 Mg Tablet Extended Release 24hr (Metformin) ..... Twice a day Bridgett Anthony [employer] Cardiology:The Patie nt was reencouraged to stop smoking. Mahad Mccallum MD Cardiology: H er updated medication list for this problem includes: Farxiga 10 Mg Tablet (Dapagliflozin) ..... Take 1 tablet by mouth once a day Fortamet 500 Mg Tablet Extended Release 24hr (Metformin) ..... Twice a day Mahad Mccallum MD Cardiology:no leg sw elling S /P successful stenting of the left iliac vein. Mahad Mccallum MD Cardiology: B P today: 170/80 P rior BP: 149/76 (06/13/2023) Labs Reviewed: C reat: 0.76 (04/17/2022) C hol: 231 (10/03/2021) HDL: 43 (10/03/2021) LDL: 156 (10/03/2021) T (10/03/2021) Mahad Mccallum MD Cardiology:Pt is fee ling well, no leg pain CP or SOB. Echo showed normal EF. Myoview scan was normal. She is tolerating crestor 20mg well. We will try to obtain lab work from PCP to see if additional treatment is needed for her cholesterol Mahad Mccallum MD Cardiology: H er updated medication list for this problem includes: Farxiga 10 Mg Tablet (Dapagliflozin) ..... Take 1 tablet by mouth once a day Fortamet 500 Mg Tablet Extended Release 24hr (Metformin) ..... Twice a day Mahad Mccallum MD Cardiology: W ill obtain f/u echo. Mahad Mccallum MD Cardiology: S /P successful stenting of the left iliac vein. Mahad Mccallum MD Cardiology: P t noticed numbness and bluish discoloration of the second and third toes of the left foot. 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 Will schedule AIF with possible intervention. CT of the chest showed mass, which is according to the pt followed by Steph. Also coronary calcification were noted on CT. Will obtain Echo and Regadenoson stress test. Mahad Mccallum MD Cardiology: L DL is 120 H er updated medication list for this problem includes: Crestor 20 Mg Tablet (Rosuvastatin) ..... 1 tablet once a day Mahad Mccallum MD Cardiology: H er updated medication list for this problem includes: Levothyroxine 75 Mcg Tablet (Levothyroxine) Mahad Mccallum MD Cardiology: B P today: 149/76 P rior BP: 165/90 (04/13/2023) Labs Reviewed: C reat: 0.76 (04/17/2022) C hol: 231 (10/03/2021) HDL: 43 (10/03/2021) Mhaad Mccallum MD Cardiology: H er updated medication list for this problem includes: Farxiga 10 Mg Tablet (Dapagliflozin) ..... Take 1 tablet by mouth once a day Fortamet 500 Mg Tablet Extended Release 24hr (Metformin) ..... Twice a day Сергей Sauer Cardiology: H er updated medication list for this problem includes: Crestor 20 Mg Tablet (Rosuvastatin) ..... 1 tablet once a day Сергей Sauer Cardiology:Pt notice d numbness and bluish discoloration of the second and third toes of the left foot. 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 Will schedule AIF with possible intervention. CT of the chest showed mass, which is according to the pt followed by Steph. Also coronary calcification were noted on CT. Will obtain Echo and Regadenoson stress test. Сергей Sauer Cardiology: B P today: 165/90 P rior BP: 143/71 (01/31/2023) Labs Reviewed: C reat: 0.76 (04/17/2022) C hol: 231 (10/03/2021) HDL: 43 (10/03/2021) Сергей Sauer Cardiology:Last LDL 156 not at goal. patient reports only takes crestor every other day as causes muscle weakness and pain when taken daily. We will update lipids. If LDL not at goal consider additional therapy H er updated medication list for this problem includes: Crestor 20 Mg Tablet (Rosuvastatin) ..... 1 tablet once a day Bridgettanne Anthony [facility] Cardiology:Quit one year ago. Was a ppd smoker >30 years. Will plan low dose screening lung CT O rders: 9213 MOD 30-39min (CPT-62492) C ounseling LDCT (CPT-G0296) L ow Dose Lung CT (CPT-G0297) A rterial Duplex Bi-Lower EX (CPT-85507) Bridgettanne Wintersgualberto [facility] Cardiology:on metfor min and farxiga per PCP. will get most recent labs sent H er updated medication list for this problem includes: Farxiga 10 Mg Tablet (Dapagliflozin) ..... Take 1 tablet by mouth once a day Fortamet 500 Mg Tablet Extended Release 24hr (Metformin) ..... Twice a day Orders: 9213 MOD 30-39min (CPT-13000) C ounseling LDCT (CPT-G0296) L ow Dose Lung CT (CPT-G0297) A rterial Duplex Bi-Lower EX (CPT-91651) [place] Singhgualberto [facility] Cardiology:Blood pre ssure 143/71. Near average at home per RPM. Will continue current meds and monitoring O rders: 9213 MOD 30-39min (CPT-88153) C ounseling LDCT (CPT-G0296) L ow Dose Lung CT (CPT-G0297) A rterial Duplex Bi-Lower EX (CPT-09373) Bridgettanne Anthony [facility] Cardiology:remains o n asa, plavix and statin. Denies pain. She does have some discoloration of the toes when feet dangle and cramping. We will do f/u duplex to r/o any suggestion of recurrent disease. O rders: 9213 MOD 30-39min (CPT-57008) C ounseling LDCT (CPT-G0296) L ow Dose Lung CT (CPT-G0297) A rterial Duplex Bi-Lower EX (CPT-58127) Bridgett Ventimiglia [employer] Cardiology:S/P inter vention of the left SFA, feeling much better. No leg pain. Will continue Plavix. Claudia Stearns Cardiology:S/P inter vention of the left SFA, feeling much better. No leg pain. Will continue Plavix. Claudia Stearns Cardiology: T he Patient was reencouraged to stop smoking. Mahad Mccallum MD Cardiology: H er updated medication list for this problem includes: Crestor 20 Mg Tablet (Rosuvastatin) ..... 1 tablet once a day Mahad Mccallum MD Cardiology: H er updated medication list for this problem includes: [place] Thyroid 60 Mg Tablet (Thyroid (pork)) ..... Once a day Levothyroxine 75 Mcg Tablet (Levothyroxine) Mahad Mccallum MD Cardiology: H er updated medication list for this problem includes: Fortamet 500 Mg Tablet Extended Release 24hr (Metformin) ..... Twice a day Mahad Mccallum MD Cardiology: B P today: 150/80 P rior BP: 150/90 (07/13/2021) Labs Reviewed: C reat: 0.76 (04/17/2022) C hol: 231 (10/03/2021) HDL: 43 (10/03/2021) Mahad Mccallum MD Cardiology: H er updated medication list for this problem includes: [place] Thyroid 60 Mg Tablet (Thyroid (pork)) ..... Once a day Levothyroxine 75 Mcg Tablet (Levothyroxine) Claudia Stearns Cardiology:The Patie nt was reencouraged to stop smoking. Claudia Stearns Cardiology:On statin . Her updated medication list for this problem includes: Crestor 20 Mg Tablet (Rosuvastatin) ..... 1 tablet once a day Claudia Stearns Cardiology: T he following medications were removed from the medication list: Amaryl 4 Mg Tablet (Glimepiride) ..... Twice a day Her updated medication list for this problem includes: Fortamet 500 Mg Tablet Extended Release 24hr (Metformin) ..... Twice a day Claudia Stearns Cardiology: B P today: 150/90 P rior BP: 130/70 (06/03/2021) Labs Reviewed: C reat: 0.6 (10/05/2017) C hol: 220 (10/05/2017) HDL: 39 (10/05/2017) T (10/05/2017) Claudia Stearns Cardiology:SERGIO showe d severe stenosis of the left distal SFA/popliteal with possible occlusion. Will schedule AIF/intervention. Venous duplex was normal. Echo showed normal EF. Claudia Stearns Cardiology:SERGIO showe d severe stenosis of the left distal SFA/popliteal with possible occlusion. Will schedule AIF/intervention. Venous duplex was normal. Echo showed normal EF. Claudia Stearns Cardiology: H er updated medication list for this problem includes: [place] Thyroid 60 Mg Oral Tablet (Thyroid) ..... Once daily Claudia Stearns Cardiology: She is n ow treated with insulin for diabetes. H er updated medication list for this problem includes: Fortamet 500 Mg Oral Tablet Extended Release 24 Hour (Metformin hcl) ..... Twice daily Amaryl 4 Mg Oral Tablet (Glimepiride) ..... Twice daily Claudia Ariaslarry Cardiology: B P today: 130/70 P rior BP: 148/80 (04/16/2019) Labs Reviewed: C reat: 0.6 (10/05/2017) C hol: 220 (10/05/2017) HDL: 39 (10/05/2017) T (10/05/2017) Her updated medication list for this problem includes: Adalat Cc 30 Mg Oral Tablet Extended Release 24 Hour (Nifedipine) ..... Once daily Claudia Ariaslarry Cardiology:Will obta in f/u echo. O n statin H er updated medication list for this problem includes: Crestor 20 Mg Oral Tablet (Rosuvastatin calcium) ..... One tablet daily Claudia Stearns Cardiology:Will obtain f/u echo. Claudia Stearns Cardiology:The pt co mplains of pain, numbness, and bluish discoloration of the toes in the left foot. Will obtain arterial and venous duplex. [facility] Cardiology:Orders: A rterial Duplex Bi-Lower EX (CPT-65923) [facility] Cardiology:Her [facility] ed medication list for this problem includes: Fortamet 500 Mg Oral Tablet Extended Release 24 Hour (Metformin hcl) ..... Twice daily Amaryl 4 Mg Oral Tablet (Glimepiride) ..... Twice daily [facility] Cardiology:Her [facility] ed medication list for this problem includes: Crestor 20 Mg Oral Tablet (Rosuvastatin calcium) ..... One tablet daily [facility] Cardiology:BP today: 148/80 P rior BP: 157/85 (11/14/2017) Her updated medication list for this problem includes: Adalat Cc 30 Mg Oral Tablet Extended Release 24 Hour (Nifedipine) ..... Once daily [facility] Cardiology:She is un dergoing workup for a suspicious nodule in her chest by Dr. Ling. She denies chest pain. In 2017, echo and stress test were normal. She's cleared for surgery if surgery is needed. She can hold Plavix for any duration as recommended by the surgeon. [facility] Cardiology:Pt compla ins of excessive tenderness on the lateral aspect of the L ankle. Will obtain arterial and venous duplexes. She does not have pain when she walks. [facility] Cardiology Hospital Follow up:Labs Reviewed: H gBA1c: 6.7 (06/09/2017) Creat: 0.6 (10/05/2017) Orders: U RINALYSIS, RANDOM, MICROALB/CREATININE ([id number]) Her updated medication list for this problem includes: Aspirin Adult Low Dose 81 Mg Oral Tablet Delayed Release (Aspirin) ..... One tab by mouth daily Fortamet 500 Mg Oral Tablet Extended Release 24 Hour (Metformin hcl) ..... Twice daily Amaryl 4 Mg Oral Tablet (Glimepiride) ..... Twice daily [facility] Follow up:S/P successful stenting of the left iliac vein. The stent in the left popliteal artery was patent. There was about 50% diffuse stenosis of the L SFA. She still has mild numbness. If symptoms worsen, will consider intervention of the L SFA. [facility] Follow up:S/P successful stenting of the left iliac vein. [facility] Follow up:BP today: 157/85 P rior BP: 150/80 (08/22/2017) Her updated medication list for this problem includes: Adalat Cc 30 Mg Oral Tablet Extended Release 24 Hour (Nifedipine) ..... Once daily [facility] Follow up:She states that she can tolerate Crestor every other day and will resume that (20mg). CHOL: 220 (10/05/2017) HDL: 39 (10/05/2017) T (10/05/2017) DLDL: 129 (10/05/2017) [facility] Follow up:We advised her to quit smoking and gave her Chantix. [facility] Follow up:S/P successful stenting of the left iliac vein. The stent in the left popliteal artery was patent. There was about 50% diffuse stenosis of the L SFA. She still has mild numbness. If symptoms worsen, will consider intervention of the L SFA. [facility] Follow up:S/P successful stenting of the left iliac vein. [facility] Cardiology:Orders: U RINALYSIS, RANDOM, MICROALB/CREATININE ([id number]) Her updated medication list for this problem includes: Aspirin Adult Low Dose 81 Mg Oral Tbec (Aspirin) ..... One tab by mouth daily Fortamet 500 Mg Oral [id number] (Metformin hcl) ..... Twice daily Amaryl 4 Mg Oral Tabs (Glimepiride) ..... Twice daily [facility] Cardiology:Her updat ed medication list for this problem includes: Lipitor 40 Mg Tabs (Atorvastatin calcium) ..... One tablet daily [facility] Cardiology:BP today: 150/80 P rior BP: 150/80 (07/25/2017) Her updated medication list for this problem includes: Adalat Cc 30 Mg Oral [id number] (Nifedipine) ..... Once daily [facility] Cardiology:Duplex a couple weeks ago showed mild plaque with less than 50% stenosis of the internal carotid arteries bilaterally and antegrade verterbral flow bilaterally. [facility] Cardiology:STRONGLY ENCOURAGED TO STOP SMOKING; SMOKING CESSATION TECHNIQUES DISCUSSED. [facility] Cardiology:Venous du plex showed venous insufficiency. The pt will contact us if she would like to proceed with an intervention (will proceed with AIF and venography with IVUS). [facility] Cardiology:Continues to have pain and feels a cold left foot at night. SERGIO's showed moderate PAD. Venous duplex showed venous insufficiency. The pt will contact us if she would like to proceed with an intervention (will proceed with AIF and venography with IVUS). [facility] Cardiology:Continues to have pain and feels a cold left foot at night. SERGIO's showed moderate PAD. The pt will contact us if she would like to proceed with an intervention (will proceed with AIF and venography with IVUS). [facility] Cardiology:Her upd ed medication list for this problem includes: [place] Thyroid 60 Mg Oral Tabs (Thyroid) ..... Once daily [facility] Cardiology:Labs Revi ewed: H gBA1c: 6.7 (06/09/2017) Creat: 0.62 (06/09/2017) Her updated medication list for this problem includes: Aspirin Adult Low Dose 81 Mg Oral Tbec (Aspirin) ..... One tab by mouth daily Fortamet 500 Mg Oral [id number] (Metformin hcl) ..... Twice daily Amaryl 4 Mg Oral Tabs (Glimepiride) ..... Twice daily [facility] Cardiology:CHOL: 235 (06/09/2017) LDL: 148 (06/09/2017) HDL: 30 (06/09/2017) T (06/09/2017) Will start Lipitor 40mg daily. [facility] Cardiology:BP today: 150/80 Her updated medication list for this problem includes: Adalat Cc 30 Mg Oral [id number] (Nifedipine) ..... Once daily [facility] Cardiology:Orders: C arotid Duplex Bilateral (CPT-30149) [facility] Cardiology:STRONGLY ENCOURAGED TO STOP SMOKING; SMOKING CESSATION TECHNIQUES DISCUSSED. [facility] Cardiology:The pt pr esented with severe pain in the left leg and had total occlusion of the distal L SFA. She underwent stenting of the distal SFA and angioplasty of the L ANNA. She is doing better but still has some pain. Will obtain arterial duplex. [facility] Cardiology:The pt pr esented with severe pain in the left leg and had total occlusion of the distal L SFA. She underwent stenting of the distal SFA and angioplasty of the L ANNA. She is doing better but still has some pain. Will obtain arterial duplex. [facility] Date Name Complete Echo Stress Exercise Card iolite PROTHROMBIN TIME WIT H INR LIPID PANEL CBC (INCLUDES DIFF/P LT) BASIC METABOLIC PANE L W/EGFR PROTHROMBIN TIME WIT H INR LIPID PANEL CBC (INCLUDES DIFF/P LT) BASIC METABOLIC PANE L W/EGFR Stress Regadenoson Complete Echo CRP, high sensitivit y Lipoprotein (a) LIPID PANEL Microalb/Creatinine Urine, Random HEMOGLOBIN A1c BASIC METABOLIC PANE L W/EGFR Arterial Duplex Bi-L ower EX Low Dose Lung CT RPM (remote patient monitoring) PROTHROMBIN TIME WIT H INR CBC (INCLUDES DIFF/P LT) BASIC METABOLIC PANE L W/EGFR AIF Intervention - S [facility] PROTHROMBIN TIME WIT H INR LIPID PANEL CBC (INCLUDES DIFF/P LT) BASIC METABOLIC PANE L W/EGFR Complete Echo Venous Doppler Bilat eral LE - Reflux Arterial Duplex Bi-L ower EX Venous Doppler Bilat eral LE - Reflux Arterial Duplex Bi-L ower EX URINALYSIS, RANDOM, MICROALB/CREATININE URINALYSIS, RANDOM, MICROALB/CREATININE PROTHROMBIN TIME WIT H INR CBC (INCLUDES DIFF/P LT) BASIC METABOLIC PANE L W/EGFR LIPID PANEL Venogram w/ IVUS - S [facility] AIF - [facility] URINALYSIS, RANDOM, MICROALB/CREATININE STR - Nuclear Aorta Duplex Ultraso und (AAA) Carotid Duplex Bilat eral Complete Echo Arterial Duplex Bi-L ower EX Venous Doppler Bilat eral LE - Reflux HISTORY OF PROCEDURES Procedure Date Procedure Name Provider Procedure Notes S tatus EKG Mahad Mccallum MD completed Counseling LDCT Mahad Mccallum MD compl eted EKG Mahad Mccallum MD completed EKG Mahad Mccallum MD completed SNOMED-CT: [id number] Smoking Cessation Counseling Mahad Mccallum MD completed SNOMED-CT: [id number] Physical Exam, Performed: Pulse Exam of Foot Mahad Mccallum MD completed SNOMED-CT: [id number] Current Medications Documented Mahad Mccallum MD completed SNOMED-CT: [id number] Smoking Cessation Counseling Mahad Mccallum MD completed SNOMED-CT: [id number] Physical Exam, Performed: Pulse Exam of Foot Mahad Mccallum MD completed SNOMED-CT: [id number] Current Medications Documented Mahad Mccallum MD completed Stress EKG Gianni Fu MD completed Regadenoson, 4 units Mahad Mccallum MD completed Cardiolite, 2 units Mahad Mccallum MD c ompleted SPECT Images Kennedi Mondragon MD completed SNOMED-CT: [id number] Smoking Cessation Counseling Mahad Mccallum MD completed SNOMED-CT: [id number] Physical Exam, Performed: Pulse Exam of Foot Mahad Mccallum MD completed EKG Mahad Mccallum MD completed SNOMED-CT: [id number] Current Medications Documented Mahad Mccallum MD completed
== END 2025-05-15 13:04 | disposition home or self-care (01) ==
PROVIDERS: PCP Nurse Practitioner Family; Visit Provider Nurse Practitioner Family
DX: Z12.2 Encounter for screening for malignant neoplasm of respiratory organs (principal); Z87.891 Personal history of nicotine dependence; R80.9 Proteinuria, unspecified; J43.8 Other emphysema; R93.89 Abnormal findings on diagnostic imaging of other specified body structures; R93.41 Abnormal radiologic findings on diagnostic imaging of renal pelvis, ureter, or bladder
CPT/HCPCS: 71271; 76775